=== PATIENT | female | born 1985 | race African-American/Black ===

== ENCOUNTER 2018-07-16 07:32 | Emergency (ER) | payer MEDICAID ==
[~2018-07-16] VITALS: Ht 180.3 cm; Wt 145.0 kg
[2018-07-16 07:34] VITALS: BP 131/79
== END 2018-07-16 08:00 | disposition left against medical advice (07) ==
LOC: ED 07:37
DX: R26.2 Difficulty in walking, not elsewhere classified (principal); Z53.21 Procedure and treatment not carried out due to patient leaving prior to being seen by health care provider